=== PATIENT | male | born 1980 | race Caucasian/White ===

== ENCOUNTER 2017-01-19 13:25 | Emergency (ER) | payer MEDICAID ==
[~2017-01-19] VITALS: Ht 175.3 cm; Wt 70.0 kg
[2017-01-19] MEDS ORDERED: SODIUM CHLORIDE 0.9% 1,000 ML IV ONE ×2 (13:58→15:23)
[2017-01-19] MEDS ORDERED: LORAZEPAM 2MG/ML CPJ IV ONE ×2 (14:00→15:30)
[2017-01-19] MEDS ORDERED: OLANZAPINE 10 MG/VIAL IM ONE (14:00)
[2017-01-19 15:19] LABS: BASOPHILS % 0.2 % (0.0-2.0); EOSINOPHILS % 0.3 % (0.0-5.0); HEMATOCRIT. 42.8 % (42.0-52.0); HEMOGLOBIN. 15.4 g/dL (14.0-18.0); LYMPHOCYTES % 11.2 % (20.0-50.0); MEAN CORPUSCULAR HEMOGLOBIN 31.8 pg (28.0-32.0); MEAN CORPUSCULAR VOLUME 88.8 fL (80.0-94.0); MEAN PLATELET VOLUME 6.9 fl (7.4-10.4); MONOCYTES % 8.9 % (2.0-8.0); NEUTROPHILS % 79.4 % (40.0-76.0); PLATELET 231 x1000/uL (130-400); RED BLOOD CELL COUNT 4.83 mill/uL (4.7-6.1); RED CELL DISTRIBUTION WIDTH 13.2 % (11.6-14.6)
[2017-01-19 15:24] LABS: CARBON DIOXIDE 25 mEq/L (21-32); CHLORIDE 109 mEq/L (98-107); ETHANOL BLOOD < 10 mg/dL
[2017-01-19 18:50] LABS: *AMPHETAMINES SCREEN URINE PRESUMTIVE POSITIVE (NEGATIVE); *BARBITURATES SCREEN URINE NEGATIVE (NEGATIVE); *BENZODIAZEPINES SCREEN URINE PRESUMTIVE POSITIVE (NEGATIVE); *COCAINE SCREEN URINE NEGATIVE (NEGATIVE); CANNABINOID URINE SCREEN NEGATIVE (NEGATIVE); METHADONE URINE SCREEN NEGATIVE (NEGATIVE); OPIATES URINE SCREEN NEGATIVE (NEGATIVE); PHENCYCLIDINE URINE SCREEN NEGATIVE (NEGATIVE)
[2017-01-19] MEDS: FOLIC ACID 1 MG, THIAMINE HCL 100 MG, MVI, ADULT NO.1 10 ML in DEXTROSE 5% WATER 1,000 ML IV ONE ×8 (19:45→22:00)
[2017-01-20 04:00] VITALS: BP 124/70
== END 2017-01-20 04:00 | disposition home or self-care (01) ==
LOC: ER 14:02
DX: G92 Toxic encephalopathy (principal); E86.0 Dehydration; F19.10 Other psychoactive substance abuse, uncomplicated
CPT/HCPCS: 36415; 80048; 80305; 80307; 80329; 85025; 96361; 96365; 96366; 96372; 96375; 96376; 99285; G0482; J2060; J3490; J7030; Z7610; J3411; J7070

== ENCOUNTER 2017-01-20 07:55 | Emergency (ER) | payer MEDICAID ==
[~2017-01-20] VITALS: Ht 167.6 cm; Wt 73.0 kg
[2017-01-20 08:03] VITALS: BP 144/92
== END 2017-01-20 11:00 | disposition left against medical advice (07) ==
LOC: ER 10:23
DX: R53.1 Weakness (principal); Z53.21 Procedure and treatment not carried out due to patient leaving prior to being seen by health care provider; F17.200 Nicotine dependence, unspecified, uncomplicated; F15.10 Other stimulant abuse, uncomplicated

== ENCOUNTER 2019-07-16 09:08 | Inpatient (IN) | payer MEDICARE, MEDICAID ==
[~2019-07-16] VITALS: Ht 172.7 cm; Wt 76.7 kg
[2019-07-16] MEDS ORDERED: ONDANSETRON 4MG ODT PO STA (12:00)
[2019-07-16 12:28] LABS: BASOPHILS % 0.2 % (0.0-2.0); EOSINOPHILS % 0.3 % (0.0-5.0); HEMATOCRIT. 55.9 % (42.0-52.0); HEMOGLOBIN. 19.4 g/dL (14.0-18.0); LYMPHOCYTES % 10.5 % (20.0-50.0); MEAN CORPUSCULAR HEMOGLOBIN 30.4 pg (28.0-32.0); MEAN CORPUSCULAR VOLUME 87.5 fL (80.0-94.0); MEAN PLATELET VOLUME 7.5 fl (7.4-10.4); MONOCYTES % 9.1 % (2.0-8.0); NEUTROPHILS % 79.9 % (40.0-76.0); PLATELET 370 x1000/uL (130-400); RED BLOOD CELL COUNT 6.39 mill/uL (4.7-6.1); RED CELL DISTRIBUTION WIDTH 13.9 % (11.6-14.6)
[2019-07-16 12:33] LABS: CHLORIDE 104 mEq/L (98-107)
[2019-07-16] MEDS ORDERED: SODIUM CHLORIDE 0.9% 1000ML BAG (SEPSIS BOLUS) IV ONE (13:00)
[2019-07-16 13:30] LABS: PROTHROMBIN TIME 10.7 sec (9.6-11.0)
[2019-07-16] MEDS ORDERED: PIPERACILLIN/TAZOBACTAM 3.375GM/50ML PREMIX IV ONE (13:45)
[2019-07-16] MEDS ORDERED: SODIUM CHLORIDE 0.9% 1,000 ML IV SCH (17:13)
[2019-07-16] MEDS ORDERED: DOCUSATE SODIUM 100MG CAPSULE PO PRN (17:15)
[2019-07-16] MEDS ORDERED: GUAIFENESIN 200MG/10ML SUGAR FREE UDC PO PRN (17:15)
[2019-07-16] MEDS ORDERED: MAGNESIUM/ALUMINUM HYDROXIDE/SIMETHICONE 30ML UDC PO PRN (17:15)
[2019-07-16] MEDS ORDERED: CLONIDINE 0.1MG TABLET PO PRN (17:15)
[2019-07-16] MEDS ORDERED: IPRATROPIUM/ALBUTEROL 0.5-3(2.5)MG/3ML NEB NEB PRN (17:15)
[2019-07-16] MEDS ORDERED: ACETAMINOPHEN 325MG TABLET PO PRN (17:15)
[2019-07-16] MEDS ORDERED: ONDANSETRON HCL 4MG/2ML INJ IV PRN (17:15)
[2019-07-16] MEDS ORDERED: NITROGLYCERIN 0.4MG TABLET SL SL PRN (17:15)
[2019-07-16] MEDS ORDERED: METOCLOPRAMIDE 10MG/10 ML UDC PO SCH (17:50)
[2019-07-16] MEDS ORDERED: ZOLPIDEM TARTRATE 5MG TABLET PO PRN (21:00)
[2019-07-16] MEDS ORDERED: METRONIDAZOLE 500 MG PREMIX 100 ML IV SCH (22:00)
[2019-07-16] MEDS ORDERED: KETOROLAC 15MG/ML VIAL IV PRN (22:30)
[2019-07-16] MEDS ORDERED: LORAZEPAM 0.5MG TABLET PO PRN (22:30)
[2019-07-16] MEDS ORDERED: QUET50TA14 PO (23:30)
[2019-07-16] MEDS ORDERED: SERT20OR PO (23:30)
[2019-07-16] MEDS ORDERED: SULF1TAB48 MT (23:32)
[2019-07-16] MEDS ORDERED: SULF1TAB48 PO (23:32)
[2019-07-16] MEDS ORDERED: ZOLP10TA2 PO (23:33)
[2019-07-17] MEDS: SODIUM CHLORIDE 0.9% 1,000 ML IV SCH ×3 (02:28→20:57)
[2019-07-17] MEDS: METRONIDAZOLE 500 MG PREMIX 100 ML IV SCH ×3 (02:28→18:31)
[2019-07-17 03:45] VITALS: BP 126/72
[2019-07-17 04:00] VITALS: BP 112/65
[2019-07-17] MEDS: CEFTRIAXONE 1 G PREMIX 50 ML IV SCH (04:18)
[2019-07-17 08:00] VITALS: BP 139/66
[2019-07-17 08:12] LABS: CHLORIDE 106 mEq/L (98-107)
[2019-07-17 08:21] LABS: PHOSPHORUS 3.4 mg/dL (2.5-4.9)
[2019-07-17 08:23] LABS: BASOPHILS % 0.3 % (0.0-2.0); EOSINOPHILS % 3.2 % (0.0-5.0); HEMATOCRIT. 41.8 % (42.0-52.0); HEMOGLOBIN. 14.6 g/dL (14.0-18.0); LYMPHOCYTES % 39.5 % (20.0-50.0); MEAN CORPUSCULAR HEMOGLOBIN 30.9 pg (28.0-32.0); MEAN CORPUSCULAR VOLUME 88.3 fL (80.0-94.0); MEAN PLATELET VOLUME 7.6 fl (7.4-10.4); MONOCYTES % 10.6 % (2.0-8.0); NEUTROPHILS % 46.4 % (40.0-76.0); PLATELET 246 x1000/uL (130-400); RED BLOOD CELL COUNT 4.73 mill/uL (4.7-6.1); RED CELL DISTRIBUTION WIDTH 13.9 % (11.6-14.6)
[2019-07-17] MEDS: METOCLOPRAMIDE 10MG/10 ML UDC PO SCH ×3 (08:48→18:31)
[2019-07-17] MEDS: FAMOTIDINE 20MG TABLET PO SCH (08:48)
[2019-07-17] MEDS ORDERED: CEFTRIAXONE 1 G PREMIX 50 ML IV SCH (09:00)
[2019-07-17 20:00] VITALS: BP 121/60
[2019-07-17 20:14] LABS: *BARBITURATES SCREEN URINE NEGATIVE (NEGATIVE); CANNABINOID URINE SCREEN NEGATIVE (NEGATIVE)
[2019-07-17 20:15] LABS: *AMPHETAMINES SCREEN URINE NEGATIVE (NEGATIVE); *BENZODIAZEPINES SCREEN URINE NEGATIVE (NEGATIVE); *COCAINE SCREEN URINE NEGATIVE (NEGATIVE); METHADONE URINE SCREEN NEGATIVE (NEGATIVE); OPIATES URINE SCREEN NEGATIVE (NEGATIVE); PHENCYCLIDINE URINE SCREEN NEGATIVE (NEGATIVE)
[2019-07-18] VITALS (7 sets, daily range): BP systolic 99–126; BP diastolic 49–80
[2019-07-18] MEDS: METRONIDAZOLE 500 MG PREMIX 100 ML IV SCH ×3 (02:00→19:29)
[2019-07-18 07:12] LABS: BASOPHILS % 0.6 % (0.0-2.0); EOSINOPHILS % 5.8 % (0.0-5.0); HEMOGLOBIN. 13.3 g/dL (14.0-18.0); LYMPHOCYTES % 41.7 % (20.0-50.0); MEAN CORPUSCULAR HEMOGLOBIN 30.7 pg (28.0-32.0); MEAN CORPUSCULAR VOLUME 87.8 fL (80.0-94.0); MEAN PLATELET VOLUME 7.4 fl (7.4-10.4); MONOCYTES % 11.6 % (2.0-8.0); NEUTROPHILS % 40.3 % (40.0-76.0); PLATELET 208 x1000/uL (130-400); RED BLOOD CELL COUNT 4.32 mill/uL (4.7-6.1); RED CELL DISTRIBUTION WIDTH 13.5 % (11.6-14.6)
[2019-07-18 07:33] LABS: CHLORIDE 110 mEq/L (98-107)
[2019-07-18 07:37] LABS: PHOSPHORUS 2.8 mg/dL (2.5-4.9)
[2019-07-18] MEDS: METOCLOPRAMIDE 10MG/10 ML UDC PO SCH ×3 (11:04→19:29)
[2019-07-18] MEDS: FAMOTIDINE 20MG TABLET PO SCH (11:04)
[2019-07-18] MEDS: SODIUM CHLORIDE 0.9% 1,000 ML IV SCH ×2 (11:13→20:15)
[2019-07-18] MEDS: CEFTRIAXONE 1 G PREMIX 50 ML IV SCH (11:24)
[2019-07-19 04:00] VITALS: BP 121/74
[2019-07-19] MEDS: SODIUM CHLORIDE 0.9% 1,000 ML IV SCH (04:13)
[2019-07-19] MEDS ORDERED: METRONIDAZOLE 500MG TABLET PO SCH (06:00)
[2019-07-19 08:00] VITALS: BP 115/65
[2019-07-19] MEDS: CEFTRIAXONE 1 G PREMIX 50 ML IV SCH (10:41)
[2019-07-19] MEDS: METOCLOPRAMIDE 10MG/10 ML UDC PO SCH (10:42)
[2019-07-19] MEDS: FAMOTIDINE 20MG TABLET PO SCH (10:42)
[2019-07-19 13:00] VITALS: BP 105/52
== END 2019-07-19 13:40 | disposition home or self-care (01) | DRG 682 ==
LOC: ER 09:08 → 7WST 16:46 → EDBEDREQ 16:48 → SUPCPDRO 17:25 → ENRESERV 21:49
PROVIDERS: ADMIT Internal Medicine; ATTEND Internal Medicine
DX: N17.0 Acute kidney failure with tubular necrosis (principal); A41.9 Sepsis, unspecified organism; E87.1 Hypo-osmolality and hyponatremia; E83.52 Hypercalcemia; Z87.891 Personal history of nicotine dependence; Z91.14 Patient's other noncompliance with medication regimen; Z21 Asymptomatic human immunodeficiency virus [HIV] infection status
CPT/HCPCS: 36415; 71045; 74176; 76770; 80053; 80305; 83036; 83605; 83735; 84100; 84145; 84484; 85025; 87015; 87045; 87427; 87449; 87493; 89055; 93005; 93970; 99291; J0696; J2543; J3490; J7030; J8597; Q0162